=== PATIENT | male | born 1985 | race African-American/Black ===

== ENCOUNTER 2016-09-09 15:07 | Emergency (ER) | payer OTHER ==
[~2016-09-09] VITALS: Ht 185.4 cm; Wt 113.4 kg
[~2016-09-09 15:07] MED LIST: AMOXICILLIN875 MG PO; FAMOTIDINE PO; MEDROL DOSPAK21 TA1 PO; NOHOMEMEDICATIONS; PHENADOZ25 MG RC; ZOFRAN ODT4 MG PO
[2016-09-09 15:09] VITALS: BP 137/82
[2016-09-09] MEDS ORDERED: PREDNISONE 20 M20 MG PO (15:26)
[2016-09-09] MEDS ORDERED: KEFLEX500 MG PO (15:26)
== END 2016-09-09 15:49 | disposition home or self-care (01) ==
LOC: ER 15:07
DX: L73.9 Follicular disorder, unspecified (principal); F10.99 Alcohol use, unspecified with unspecified alcohol-induced disorder

== ENCOUNTER 2016-10-16 22:08 | Emergency (ER) | payer OTHER ==
[~2016-10-16] VITALS: Ht 185.4 cm; Wt 113.4 kg
[~2016-10-16 22:08] MED LIST changes: +KEFLEX500 MG PO; +PREDNISONE 20 M20 MG PO
[2016-10-16] MEDS ORDERED: NORCO 5-325 TA1 EACH PO (23:10)
[2016-10-17 00:11] VITALS: BP 152/92
== END 2016-10-17 00:12 | disposition home or self-care (01) ==
LOC: ER 22:08
DX: S43.102A Unspecified dislocation of left acromioclavicular joint, initial encounter (principal); F10.99 Alcohol use, unspecified with unspecified alcohol-induced disorder; V49.40XA Driver injured in collision with unspecified motor vehicles in traffic accident, initial encounter; Y93.I9 Activity, other involving external motion; Y92.89 Other specified places as the place of occurrence of the external cause; Y99.8 Other external cause status